=== PATIENT | female | born 1995 | race Caucasian/White ===

== ENCOUNTER 2019-01-30 10:44 | Day surgery (SDC) | payer OTHER ==
[2019-01-21 17:14] VITALS: BMI 19.6
[2019-01-30] MEDS ORDERED: PROPOFOL 20 ML ONE ×2 (12:46→13:25)
[2019-01-30 14:02] VITALS: TEMP 97.9
[2019-01-30 14:08] VITALS: BP 103/67; PULSE 78
== END 2019-01-30 14:09 | disposition home or self-care (01) ==
LOC: FASU-ENDO 10:44
PROVIDERS: ATTEND Internal Medicine Gastroenterology
PROC: 0DJD8ZZ Inspection of Lower Intestinal Tract, Via Natural or Artificial Opening Endoscopic (ICD-10-PCS; principal; 2019-01-30 13:17)
DX: K64.8 Other hemorrhoids (principal)
CPT/HCPCS: 84703

== ENCOUNTER 2020-08-06 23:11 | Emergency (ER) | payer OTHER ==
[2020-08-06 23:18] VITALS: BP 110/77; PULSE 116; TEMP 99.7; BMI 20.8
[2020-08-07] MEDS ORDERED: CEFUROXIME AXETIL 500 MG TABLET PO ONE (00:36)
[2020-08-07] MEDS ORDERED: CEFUROXIME AXETIL 500 MG TABLET ONE (00:46)
[2020-08-07 01:22] LABS: EPI CELLS 17 /uL (0-25.1); HYALINE CASTS 19 /uL (0-3.1); URINE APPEARANCE TURBID; URINE BACTERIA 1596 /uL (0-1359); URINE BILIRUBIN 1+ (NEGATIVE); URINE COLOR DK YELLOW; URINE GLUCOSE (UA) TRACE (NEGATIVE); URINE KETONE 1+ (NEGATIVE); URINE LEUK ESTERASE 3+ (NEGATIVE); URINE NITRITE POSITIVE (NEGATIVE); URINE PROTEIN 3+ (NEGATIVE); URINE RBC 5031 /uL (0-23.9); URINE WBC 17099 /uL (0-25.8)
== END 2020-08-07 01:14 | disposition home or self-care (01) ==
LOC: FER 23:11
DX: N39.0 Urinary tract infection, site not specified (principal)
CPT/HCPCS: 81003; 87086; 87186; 99284-25